=== PATIENT | female | born 1935 | race Hispanic/Latino ===

== ENCOUNTER 2016-11-30 11:29 | Inpatient (IN) | payer MEDICARE ==
[2016-11-30 12:53] LABS: Eosinophils % (Auto) 4.7 % (0.0-4.3); Hematocrit 41.8 % (30.3-42.9); Mean Corpuscular HGB Conc 34 % (30-34); Mean Corpuscular Hemoglobin 29 pg (28-32); Mean Corpuscular Volume 86 fl (79-97); Platelet Count 218 K/mm3 (140-440); Red Blood Count 4.85 M/mm3 (3.65-5.03); Red Cell Distribution Width 13.5 % (13.2-15.2); White Blood Count 7.3 K/mm3 (4.5-11.0)
[2016-11-30 13:11] LABS: Anion Gap 18 mmol/L; Blood Urea Nitrogen 17 mg/dL (7-17); Calcium 9.2 mg/dL (8.4-10.2); Carbon Dioxide 24 mmol/L (22-30); Chloride 102.7 mmol/L (98-107); Glucose 108 mg/dL (65-100); Potassium 3.5 mmol/L (3.6-5.0); Sodium 141 mmol/L (137-145)
--- NOTE | 2016-11-30 13:34 | XRay Report ---
CHEST 2 VIEWS INDICATION: Shortness of breath. COMPARISON: None similar. FINDINGS: PA and lateral chest radiographs demonstrate normal cardiomediastinal silhouette. Aortic atherosclerotic calcifications. No pleural effusions or CHF. Demineralized bones with moderate lower thoracic spine degenerative changes. CONCLUSION: No acute disease, as described. Thank you for the opportunity to participate in this patient's care.
[2016-11-30] MEDS ORDERED: PEPCID IV ONE (13:44)
[2016-11-30] MEDS ORDERED: BENADRYL PO ONE (13:44)
--- NOTE | 2016-11-30 13:56 | Emergency Department Report ---
HPI - General Chief Complaint: Arrhythmia/Palpitations Time Seen by Provider: 11/30/16 13:31 - HPI HPI: Room 23 The patient is a 81-year-old female presenting with chief complaint of lip and throat swelling. Patient states yesterday after eating turkey and dressing her mouth began to "feel funny" the patient states she went home sleeping when she awakened she noticed that her lips felt swollen and her throat felt tight. The patient states the swelling of the lip is decreasing but is still present the throat is currently sore. Patient does admit to shortness of breath with a few visits to her recent treatment for bronchitis. The patient states she is on valsartan and has been on it for years Location: Lips and throat Duration: [see above] Quality: Swelling Severity: Moderate Modifying factors: [see above] Context: [see above] Mode of transportation: [not driving] ED Past Medical Hx - Past Medical History Previous Medical History?: Yes Hx Hypertension: Yes Additional medical history: "Irregular heartbeat". Vertigo - Surgical History Past Surgical History?: Yes Additional Surgical History: hysterectomy, right lower extremity fracture repair - Family History Family history: no significant - Social History Smoking Status: Former Smoker Substance Use Type: Alcohol (rarely) ED Review of Systems ROS: Stated complaint: ALLERGIC REACTION Other details as noted in HPI Comment: All other systems reviewed and negative Constitutional: denies: chills, fever Eyes: denies: eye pain, eye discharge, vision change ENT: other (throat tightness) Respiratory: cough Cardiovascular: denies: chest pain, palpitations Endocrine: no symptoms reported Gastrointestinal: denies: abdominal pain, nausea, diarrhea Genitourinary: denies: urgency, dysuria, discharge Musculoskeletal: denies: back pain, joint swelling, arthralgia Skin: denies: rash, lesions Neurological: denies: headache, weakness, paresthesias Psychiatric: denies: anxiety, depression Hematological/Lymphatic: denies: easy bleeding, easy bruising Physical Exam - Physical Exam Vital Signs: Vital Signs 11/30/16 11:55 Temperature 98.5 F Pulse Rate 42 L Respiratory 24 Rate Blood Pressure 117/67 O2 Sat by Pulse 100 Oximetry Physical Exam: GENERAL: The patient is well-developed well-nourished female sitting on stretcher not appearing to be in acute distress. [] HEENT: Normocephalic. Atraumatic. Extraocular motions are intact. Patient has moist mucous membranes. Oropharynx clear. Lower lip appears slightly full NECK: Supple. Trachea midline CHEST/LUNGS: Clear to auscultation. There is no respiratory distress noted. HEART/CARDIOVASCULAR: Irregularly irregular. There is no tachycardia. There is no gallop rub or murmur. ABDOMEN: Abdomen is soft, nontender. Patient has normal bowel sounds. There is no abdominal distention. SKIN: There is no rash. There is no edema. There is no diaphoresis. NEURO: The patient is awake, alert, and oriented. The patient is cooperative. The patient has normal speech MUSCULOSKELETAL: There is no evidence of acute injury. ED Course Vital Signs 11/30/16 11:55 Temperature 98.5 F Pulse Rate 42 L Respiratory 24 Rate Blood Pressure 117/67 O2 Sat by Pulse 100 Oximetry ED Medical Decision Making - Lab Data Result diagrams: 11/30/16 12:31 11/30/16 12:31 Laboratory Tests 11/30/16 11/30/16 11/30/16 11:49 12:31 12:31 WBC 7.3 RBC 4.85 Hgb 14.0 Hct 41.8 MCV 86 MCH 29 MCHC 34 RDW 13.5 Plt Count 218 Lymph % (Auto) 16.8 Cassia % (Auto) 8.9 H Eos % (Auto) 4.7 H Baso % (Auto) 1.0 Lymph # 1.2 Cassia # 0.6 Eos # 0.3 Baso # 0.1 Seg Neutrophils % 68.6 Seg Neutrophils # 5.0 Sodium 141 Potassium 3.5 L Chloride 102.7 Carbon Dioxide 24 Anion Gap 18 BUN 17 Creatinine 1.0 Estimated GFR 53 BUN/Creatinine Ratio 17.00 Glucose 108 H POC Glucose 102 Calcium 9.2 Troponin T < 0.010 NT-Pro-B Natriuret Pep 662.7 - EKG Data -: EKG Interpreted by Me Rate: tachycardia (102 bpm) - EKG Data When compared to previous EKG there are: previous EKG unavailable Interpretation: other (atrial fibrillation) - Radiology Data Radiology results: image reviewed (chest x-ray, lateral soft tissue neck x-ray) interpreted by me: Chest x-ray-no focal infiltrates, no pneumothorax Lateral soft tissue neck x-ray-no prevertebral swelling. No evidence of epiglottitis - Differential Diagnosis angioedema, allergic reaction Critical care attestation.: If time is entered above; I have spent that time in minutes in the direct care of this critically ill patient, excluding procedure time. ED Disposition Clinical Impression: Allergic reaction Disposition: OP ADMITTED IP TO THIS HOSP Is pt being admited?: Yes Does the pt Need Aspirin: Yes Condition: Fair Referrals: PRIMARY CARE, [Primary Care Provider] - 3-5 Days Time of Disposition: 14:06 (hospitalist paged)
--- NOTE | 2016-11-30 14:04 | Admit Criteria Form ---
Admission Criteria Documentation: HEAD AND NECK DISEASE [facility] Clinical Indications for Admission to Inpatient Care ( Place 'X' for any and all applicable criteria): Hospital admission is needed for appropriate care of the patient because of ANY ONE of the following (1)(2): [ ]I. Severe sinusitis as indicated by ANY ONE of the following (6)(13)(21) [ ]a) Suspected ATM TECHNICIAN infection [ ]b) Bacteremia [ ]c) Hemodynamic instability [ ]d) Outpatient and observation care antibiotic treatment have failed or are not considered appropriate [ ]e) Surgical drainage needed that cannot be performed on an outpatient basis or observation. setting [ ]f) Suspected orbital involvement [ ]II. Acute glaucoma unresponsive to emergency treatment that requires medication or other treatment beyond the scope of observation care (1) [ ]III. Severe eye infection or inflammation (eg, uveitis) which is unresponsive to emergency treatment and requires medication or other treatment beyond the scope of observation care (1)(2)(3)(4) [ ]IV. Severe epistaxis requiring posterior packing (5)(6) [ ]V. Acute bacterial labyrinthitis(6)(7) [ ]. Viral labyrinthitis with symptoms uncontrollable on an outpatient or observation care basis (6)(7) [ ]VII. Severe necrotizing external otitis unresponsive to outpatient and observation care treatment(6) [ ]VIII. Otitis media requiring treatment beyond the scope of outpatient and observation care, as indicated by presence or persistence of ANY ONE of the following(6)(8)(9): [ ]a) Hemodynamic instability [ ]b) Mastoiditis [ ]c) Suspected ATM TECHNICIAN infection [ ]d) Bacteremia [ ]e) Surgical drainage needed that cannot be performed as an outpatient. or in an observation setting. [ ]IX. Epiglottitis or supraglottitis(6)(11)(12)(13)(14) [ ]X. Stridor or laryngospasm (unresponsive to emergency management) (6)(11)( 12)(13)(14) [ ]XI. Acute pharyngitis or tonsillitis and ANY ONE of the following (14)(15)( 16): [ ]a) Hemodynamic instability remaining after emergency or observation level care (as appropriate) [ ]b) Surgical drainage needed that cannot be performed in outpatient or observation setting [ ]c) Mediastinitis [ ]d) Thrombophlebitis of internal jugular vein (Lemierre syndrome) [ ]XII. Sialoadenitis and ANY ONE of the following (17) (18) [ ]a) Hemodynamic instability remaining after emergency or observation level care(as appropriate) [ ]b) Surgical drainage needed that cannot be performed in outpatient or observation setting [ ]XIII. Airway blockage or inability to swallow (6)(12)(19)(20) [ ]XIV.Complicated infection indicated by ANY ONE of the following(6)(13)(21)(22 ): [ ]a) Abscess or swelling causing airway difficulty(12) [ ]b) Bacteremia [ ]c) Hemodynamic instability [ ]d) Suspected ATM TECHNICIAN infection [ ]e) Outpatient and observation care antibiotic treatment have failed or are not considered appropriate [ ]f) Surgical drainage needed that cannot be performed on an outpatient basis or observation setting [ ]g) Other management need that cannot be performed in outpatient or observation setting: [ ]XV. Severe trauma requiring inpatient medical treatment of eye, head, pharynx, or airway (1)(23)([phone]) [ ]XVI. Ischemic optic neuropathy(11) [X ]XVII.Head or Neck Disease condition and ANY ONE of the following: [X ]a) Symptom or finding for which emergency and observation care have failed or are not considered appropriate (Also use General Criteria: Observation Care as appropriate) [ ]b) Presence of ANY ONE of the following: [ ]i) A General Admission Criteria [ ]ii) A Pediatric General Admission Criteria [facility] content created by [facility] has been revised. The portions of the content which have been revised are identified through the use of italic text or in bold, and [facility] has neither reviewed nor approved the modified material. All other unmodified content is copyright [facility]. Please see references footnoted in the original [facility] edition 2016 Admission Criteria Met: Yes
--- NOTE | 2016-11-30 14:35 | XRay Report ---
Soft tissue neck 2 views: History: Throat swelling. Findings: Laryngeal and tracheal air column appears unremarkable. Normal prevertebral soft tissue. Evidence of cervical spondylosis lower cervical spine. Impression: Cervical spondylosis.
--- NOTE | 2016-11-30 22:40 | Event Note ---
Date: 11/30/16 See H/p in reports Angioedema ??? Valsartan
[2016-11-30] MEDS ORDERED: BENADRYL PO PRN (22:42)
[2016-11-30] MEDS ORDERED: NACL 0.9% 1000 ML 1,000 ML IV SCH (23:00)
[2016-11-30] MEDS: COREG PO SCH (23:00)
--- NOTE | 2016-11-30 23:17 | History and Physical Report ---
CHIEF COMPLAINT: Palpitations. Swelling of the lip. HISTORY OF PRESENT ILLNESS: A 81-year-old -[place] female who comes in for lip and throat swelling since yesterday. The patient ____and dressing. She went home, was prepped and she workup. The patient noticed swelling of the lips and the tongue. The swelling decreased by the time she came here. No shortness of breath. No problems swallowing. The patient also was on losartan for many years for hypertension. No fever, no chills. No shortness of breath. PAST MEDICAL HISTORY: Significant for hypertension and arrhythmias. Vertigo. PAST SURGICAL HISTORY: Hysterectomy, right lower extremity fracture repair. SOCIAL HISTORY: A former smoker stopped smoking a few years ago. Alcohol occasionally. FAMILY HISTORY: Significant for hypertension. REVIEW OF SYSTEMS: Significant for swelling of the lips and the tongue. Otherwise, review of systems is essentially negative. A 14-point review of systems was done. CONSTITUTIONAL: No fever, no chills. HEENT: ___ swelling of the lip and swelling of the tongue present. At the time of admission to the ER, but subsided. CARDIOVASCULAR AND RESPIRATORY: No shortness of breath, no chest pain. No palpitations. No cough. GASTROINTESTINAL: No nausea, no vomiting, no diarrhea. GENITOURINARY SYSTEM: No dysuria, no flank pain. MUSCULOSKELETAL SYSTEM: No joint pains. CENTRAL NERVOUS SYSTEM: No syncope, no seizures. SKIN: No rashes. PSYCHIATRIC, HEMATOLOGIC AND LYMPHATIC SYSTEM: Noncontributory. A 14-point review of systems done. PHYSICAL EXAMINATION: GENERAL: Elderly female, cooperative during examination. VITAL SIGNS: Blood pressure is 117/67, temperature is 98.5, pulse is 42, respirations are 24. HEENT: Tongue and lip were slightly swollen. NECK: Supple, no lymphadenopathy, no thyromegaly. LUNGS: Clear to auscultation and percussion. Good air entry. CARDIOVASCULAR: S1, S2 heard. No gallop, no murmur, no rub. Apical impulse in left fifth intercostal space and midclavicular line. ABDOMEN: Soft and benign. No hepatosplenomegaly. No guarding, no rigidity. Hernial orifices are normal. EXTREMITIES: Good pedal pulses. No pedal edema. CENTRAL NERVOUS SYSTEM: Alert and oriented x 4, nonfocal exam. LABORATORY DATA: Potassium is 3.5; otherwise, labs are within normal limits. Troponin is less than 0.010. EKG shows atrial fibrillation. Chest x-ray normal. ASSESSMENT AND PLAN: 1. Angioedema, probably secondary to valsartan, but possibly secondary to food. We will treat her symptomatically with IV Solu-Medrol, IV Pepcid, Benadryl, and IV fluids. Valsartan stopped. 2. Hypertension. The patient stopped valsartan ____ Coreg is 6.25 q.12h. 3. Deep venous thrombosis prophylaxis, Lovenox 40 mg subcutaneous daily. Possible discharge in 24-48 hours. The patient is doing well. JOB# [id number] PEE/MARILYNN
[2016-12-01 07:16] LABS: Basophils % (Auto) 0.3 % (0.0-1.8); Eosinophils % (Auto) 0.1 % (0.0-4.3); Hematocrit 40.9 % (30.3-42.9); Hemoglobin 13.7 gm/dl (10.1-14.3); Mean Corpuscular HGB Conc 34 % (30-34); Mean Corpuscular Hemoglobin 29 pg (28-32); Mean Corpuscular Volume 86 fl (79-97); Platelet Count 185 K/mm3 (140-440); Red Blood Count 4.74 M/mm3 (3.65-5.03); Red Cell Distribution Width 13.5 % (13.2-15.2); White Blood Count 5.1 K/mm3 (4.5-11.0)
[2016-12-01 07:39] LABS: Alanine Aminotransferase 8 units/L (7-56); Albumin/Globulin Ratio 1.3 %; Alkaline Phosphatase 55 units/L (35-129); Anion Gap 19 mmol/L; Bilirubin,Total 0.4 mg/dL (0.1-1.2); Blood Urea Nitrogen 20 mg/dL (7-17); Calcium 8.9 mg/dL (8.4-10.2); Carbon Dioxide 21 mmol/L (22-30); Chloride 102.3 mmol/L (98-107); Glucose 206 mg/dL (65-100); Potassium 3.6 mmol/L (3.6-5.0); Sodium 139 mmol/L (137-145); Total Protein 7.1 g/dL (6.3-8.2)
[2016-12-01] MEDS: COREG PO SCH (10:15)
[2016-12-01] MEDS: PEPCID IV SCH ×2 (10:15)
--- NOTE | 2016-12-01 10:28 | Discharge Summary ---
Providers - Providers Date of Admission: 11/30/16 14:07 Date of discharge: 12/01/16 Attending physician: REHAN TOLBERT Primary care physician: COUNTY ENGINEER Hospitalization Condition: Stable Pertinent studies: CXR showed no acute disease or CHF. X-ray of neck showed cervical spondylosis. Procedures: None Disposition: DISCHARGED TO HOME OR SELFCARE Core Measure Documentation - Palliative Care Palliative Care/ Comfort Measures: Not Applicable - Core Measures Any of the following diagnoses?: none Exam - Constitutional Vitals: Temp Pulse Resp BP Pulse Ox 98.5 F 62 17 129/76 96 11/30/16 11:55 11/30/16 23:00 11/30/16 15:01 11/30/16 23:00 11/30/16 15:01 General appearance: Present: no acute distress, well-nourished - EENT Eyes: Present: PERRL ENT: hearing intact, clear oral mucosa - Neck Neck: Present: supple, normal ROM - Respiratory Respiratory effort: normal Respiratory: bilateral: CTA - Cardiovascular Heart Sounds: Present: S1 & S2. Absent: rub, click - Extremities Extremities: pulses symmetrical, No edema Peripheral Pulses: within normal limits - Abdominal General gastrointestinal: Present: soft, non-tender, non-distended, normal bowel sounds Female genitourinary: Present: normal - Integumentary Integumentary: Present: clear, warm, dry - Musculoskeletal Musculoskeletal: gait normal, strength equal bilaterally - Psychiatric Psychiatric: appropriate mood/affect, intact judgment & insight - Neurologic Neurologic: CNII-XII intact, moves all extremities Plan Activity: advance as tolerated Diet: regular Special Instructions: record daily BP diary Follow up with: PRIMARY CARE, [Primary Care Provider] - 3-5 Days Prescriptions: amLODIPine [Norvasc] 5 mg PO DAILY #30 tab Carvedilol [Coreg] 6.25 mg PO BID #60 tablet
[2016-12-01 11:07] VITALS: BP 134/74
== END 2016-12-01 14:45 | disposition home or self-care (01) | DRG 916 ==
LOC: ED 11:29 → CC2 14:07
PROVIDERS: ADMIT Internal Medicine; ATTEND Family Medicine
DX: T78.3XXA Angioneurotic edema, initial encounter (principal); M47.892 Other spondylosis, cervical region; I50.9 Heart failure, unspecified; I11.0 Hypertensive heart disease with heart failure; Z90.710 Acquired absence of both cervix and uterus; Z87.891 Personal history of nicotine dependence; Z82.49 Family history of ischemic heart disease and other diseases of the circulatory system
CPT/HCPCS: 36415; 70360; 71020; 80048; 80053; 82962; 83880; 84484; 85025; 93005; 93010; 96374; 96375; J2930; J7030

== ENCOUNTER 2017-01-09 14:06 | Emergency (ER) | payer MEDICARE ==
--- NOTE | 2017-01-09 16:28 | Emergency Department Report ---
ED Animal Bite HPI - General Chief Complaint: Animal Bite Stated Complaint: POSSIBLE BROWN RECLUSE BITE Time Seen by Provider: 01/09/17 15:52 Source: patient, family Mode of arrival: Ambulatory Limitations: No Limitations - History of Present Illness Initial Comments: Patient here reports that she was bit by a spider on Wednesday night. She says she went to urgent care on [address] and they gave her bacitracin cream to put on it. She said Dr. Desiree rome but he said he wouldn't be back for 3 days and when she called yesterday he said it was sent out late stated she will get back until Wednesday patient says that she got bit is change in color and she is afraid that is getting infected. She has been put in [employer] tracing last to the area. She said there is localized redness and pain for 3 out of 10 pain is a stinging pain. Denies any fever or chills. Denies any radiation of redness or pain to her legs. Patient said that she thinks it was a brown recluse spider bit her. She said the doctor didn't give her any antibiotic to take by mouth and did not give her any tetanus shot.. Complaint: animal bite Onset/Timin -: days(s) Right: Foot (redness with some swelling and tingling pain) Animal: other (spider bite) Animal Control Notified: No Description: unknown animal, immunizations unknown, appeared well Mechanism: bite Pain Description: constant Severity scale (0 -10): 3 Context: unprovoked Associated Symptoms: erythema. denies: discharge from wound, bleeding, fever, chills, rash, loss of consciousness, cough, headache, diaphoresis, shortness of breath Treatments Prior to Arrival: antibiotic ointment - Related Data Patient Tetanus UTD: No Previous Rx's Medication Instructions Recorded Last Taken Type Carvedilol [Coreg] 6.25 mg PO BID #60 tablet 12/01/16 Unknown Rx amLODIPine [Norvasc] 5 mg PO DAILY #30 tab 12/01/16 Unknown Rx Doxycycline [Vibramycin CAP] 100 mg PO Q12HR #20 capsule 01/09/17 Unknown Rx Ibuprofen [Motrin] 600 mg PO Q8H PRN #12 tablet 01/09/17 Unknown Rx Allergies Allergy/AdvReac Type Severity Reaction Status Date / Time valsartan Allergy Anaphylaxis Verified 01/09/17 14:14 clarithromycin [From Biaxin] AdvReac VOMITING / Verified 01/09/17 14:13 [facility] ED Review of Systems ROS: Stated complaint: POSSIBLE BROWN RECLUSE BITE Other details as noted in HPI Comment: All other systems reviewed and negative Constitutional: denies: chills, fever Eyes: denies: vision change ENT: denies: ear pain, throat pain, congestion Respiratory: no symptoms reported Cardiovascular: denies: chest pain, palpitations, edema, syncope Gastrointestinal: denies: abdominal pain, nausea, vomiting, diarrhea Musculoskeletal: arthralgia. denies: back pain, joint swelling, myalgia Skin: other (inset bite) Neurological: denies: headache, weakness, numbness, paresthesias, confusion, abnormal gait, vertigo ED Past Medical Hx - Past Medical History Previous Medical History?: Yes Hx Hypertension: Yes Hx Heart Attack/AMI: No Hx Congestive Heart Failure: No Hx Diabetes: (HYPOGLYCEMIA) Hx Deep Vein Thrombosis: No Hx Pulmonary Embolism: No Hx Liver Disease: No Hx Renal Disease: No Hx Sickle Cell Disease: No Hx Arthritis: Yes Hx Seizures: No Hx Kidney Stones: No Hx Asthma: No Hx COPD: No Hx Tuberculosis: No Hx Dementia: No Additional medical history: "Irregular heartbeat". Vertigo. THYROID - Surgical History Past Surgical History?: Yes Hx Coronary Stent: No Hx Pacemaker: No Hx Internal Defibrillator: No Additional Surgical History: hysterectomy, right lower extremity fracture repair - Family History Family history: hypertension - Social History Smoking Status: Former Smoker Substance Use Type: None - Medications Home Medications: Home Medications Medication Instructions Recorded Confirmed Last Taken Type Carvedilol [Coreg] 6.25 mg PO BID #60 tablet 12/01/16 Unknown Rx amLODIPine [Norvasc] 5 mg PO DAILY #30 tab 12/01/16 Unknown Rx Doxycycline [Vibramycin CAP] 100 mg PO Q12HR #20 capsule 01/09/17 Unknown Rx Ibuprofen [Motrin] 600 mg PO Q8H PRN #12 tablet 01/09/17 Unknown Rx ED Physical Exam - General Limitations: No Limitations General appearance: alert, in no apparent distress - Head Head exam: Present: atraumatic, normocephalic, normal inspection - Eye Eye exam: Present: normal appearance, PERRL, EOMI. Absent: periorbital swelling , periorbital tenderness Pupils: Present: normal accommodation - ENT ENT exam: Present: normal exam, normal orophraynx, mucous membranes moist, TM's normal bilaterally, normal external ear exam - Neck Neck exam: Present: normal inspection, full ROM. Absent: tenderness, meningismus, lymphadenopathy - Respiratory Respiratory exam: Present: normal lung sounds bilaterally. Absent: respiratory distress, stridor, chest wall tenderness - Cardiovascular Cardiovascular Exam: Present: regular rate, normal rhythm, normal heart sounds - GI/Abdominal GI/Abdominal exam: Present: soft, normal bowel sounds. Absent: distended, tenderness, guarding, rebound, rigid - Extremities Exam Extremities exam: Present: normal inspection, full ROM, tenderness (anterior right foot), normal capillary refill. Absent: pedal edema, joint swelling, calf tenderness - Expanded Lower Extremity Exam Right Hip exam: Present: normal inspection, full ROM, pelvic stability. Absent: tenderness, swelling, abrasion, laceration, ecchymosis, deformity, crepidus, dislocation, erythema, external rotation, internal rotation, shortening Upper Leg exam: Present: normal inspection, full ROM. Absent: tenderness, swelling, abrasion, laceration, ecchymosis, deformity, crepidus, dislocation, erythema Knee exam: Present: normal inspection, full ROM, full knee extension. Absent: tenderness, swelling, abrasion, laceration, ecchymosis, deformity, crepidus, dislocation, erythema, effusion, pain w/ pronation/supination Lower Leg exam: Present: normal inspection, full ROM. Absent: tenderness, swelling, abrasion, laceration, ecchymosis, deformity, crepidus, dislocation, erythema, palpable cord, Kylee's sign Ankle exam: Present: normal inspection, full ROM. Absent: tenderness, swelling , abrasion, laceration, ecchymosis, deformity, crepidus, dislocation, erythema Foot/Toe exam: Present: normal inspection, full ROM, tenderness (anterior dorsal aspect of right foot), swelling (mild swelling anterior right foot), ecchymosis, erythema. Absent: abrasion, laceration, deformity, crepidus, dislocation, amputation, puncture wound, foreign body, calcaneal tenderness, tenderness at base of 5th metatarsal, nail avulsion, subungual hematoma Neuro vascular tendon exam: Present: no vascular compromise. Absent: pulse deficit, abnormal cap refill, motor deficit, sensory deficit, tendon deficit, extremity cold to touch, pallor, abnormal 2-point discrimination, decreased fine /light touch, foot drop, peroneal nerve deficit, significant pain with passive ROM of distal joint Gait: Positive: observed and normal - Back Exam Back exam: Present: normal inspection, full ROM - Neurological Exam Neurological exam: Present: alert, oriented X3, normal gait, reflexes normal. Absent: motor sensory deficit - Psychiatric Psychiatric exam: Present: normal affect, normal mood - Skin Skin exam: Present: warm, dry, erythema, ecchymosis - Expanded Skin Exam Expanded Type of lesion: Present: bite/sting. Absent: abscess, laceration, abrasion Distribution of rash: RLE (cellulitic area approximately 2 x 1 cm noted to right anterior foot proximally around carpal Bone area. Area erythema without ecchymosis and tender to palpate. No drainage noted. No induration and no fluctuance) Description of rash: Present: tenderness, erythematous, swelling. Absent: crusting, discharge, fluctuant, indurated ED Course Vital Signs 01/09/17 14:15 Temperature 97.6 F Pulse Rate 78 Respiratory 16 Rate Blood Pressure 180/75 O2 Sat by Pulse 100 Oximetry - Reevaluation(s) Reevaluation #1: 01/09/17 18:29 Finger Rocephin 1 g IM in emergency room for cellulitis and she was updated on her tetanus shot strokes. 0.5. Critical care attestation.: If time is entered above; I have spent that time in minutes in the direct care of this critically ill patient, excluding procedure time. ED Disposition Clinical Impression: Cellulitis of foot, right, Arthralgia of right foot Insect bite Qualifiers: Encounter type: initial encounter Qualified Code(s): W57.XXXA - Bitten or stung by nonvenomous insect and other nonvenomous arthropods, initial encounter Disposition: DISCHARGED TO HOME OR SELFCARE Is pt being admited?: No Does the pt Need Aspirin: No Condition: Stable Instructions: Animal Bite (ED), Arthralgia (ED), Cellulitis (ED) Additional Instructions: Please keep affected area clean and dry. Apply bacitracin ointment to affected area as instructed by the previous doctor Please follow up with Dr. Hoyos and to 3 days Please take antibiotic as instructed Prescriptions: Doxycycline [Vibramycin CAP] 100 mg PO Q12HR #20 capsule Ibuprofen [Motrin] 600 mg PO Q8H PRN #12 tablet PRN Reason: Pain Referrals: MARTI HOYOS MD [Primary Care Provider] - 2-3 Days Forms: Work/School Release Form(ED), Accompanied Note ED Medical Decision Making - Medical Decision Making ED course: Patient status post insect bite with cellulitis to right foot. She is also with arthralgia. Affected area cleansed with normal saline and Neosporin ointment side followed by dry sterile dressing. Patient given Boostrix 0.5 mouth injection in emergency room to have beta tetanus and Rocephin 1 g IM for cellulitis. She is to follow-up with Dr. Hoyos who is her primary care doctor . She was understanding of discharge instruction and she says she'll call and Wednesday to schedule an appointment to see Dr. Sun on Wednesday. Discharged home with prescription for motrin and doxycycline.
[2017-01-09] MEDS ORDERED: BOOSTRIX IM ONE (16:31)
[2017-01-09] MEDS ORDERED: ROCEPHIN IM ONE (16:31)
[2017-01-09] MEDS ORDERED: XYLOCAINE 1% MPF 5 mL INFILTRATI ONE (16:31)
[2017-01-09] MEDS ORDERED: TRIPLE ANTIBIOTIC TP ONE (16:31)
[2017-01-09 18:43] VITALS: BP 119/87
== END 2017-01-09 18:44 | disposition home or self-care (01) ==
LOC: ED 14:06
DX: L03.115 Cellulitis of right lower limb (principal); I10 Essential (primary) hypertension; W57.XXXA Bitten or stung by nonvenomous insect and other nonvenomous arthropods, initial encounter; Y93.89 Activity, other specified; Y99.8 Other external cause status; Y92.89 Other specified places as the place of occurrence of the external cause; Z90.710 Acquired absence of both cervix and uterus; Z98.890 Other specified postprocedural states
CPT/HCPCS: 90471; 90715; 96372; 99282; J0696; A6250